=== PATIENT | female | born 1960 | race Caucasian/White ===

== ENCOUNTER 2016-07-18 13:00 | Outpatient (CLI) | payer OTHER ==
[2014-11-12 17:46] VITALS: BP 171/76
== END 2016-07-18 13:01 ==
LOC: CARD 13:00
PROVIDERS: ATTEND Internal Medicine Cardiovascular Disease
DX: R55 Syncope and collapse (principal); Z86.73 Personal history of transient ischemic attack (TIA), and cerebral infarction without residual deficits; F17.210 Nicotine dependence, cigarettes, uncomplicated; I10 Essential (primary) hypertension; E78.5 Hyperlipidemia, unspecified; J44.9 Chronic obstructive pulmonary disease, unspecified
CPT/HCPCS: 99213

== ENCOUNTER 2018-01-09 14:24 | Outpatient (CLI) | payer OTHER ==
[2014-11-12 17:46] VITALS: BP 171/76
--- NOTE | 2018-01-10 13:45 | OP Clinic Progress Note ---
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 This patient has been seen over the last couple of weeks and she is doing a good job keeping her dressings clean, dry, and intact at this time. She denies any fevers, chills, nausea, vomiting, shortness of breath, or chest pain at this time. She denies any other complaints or concerns regarding her feet at this time. OBJECTIVE: VITAL SIGNS: T: 97.6 degree Fahrenheit, heart rate 71, R: 16, BP: Elevated at 197/78. We have been having blood pressure cuff problems and I believe this blood pressure is likely falsely elevated today. VASCULAR: Palpable pulses of left foot. Capillary refill time is less than 3 seconds to the toes of the left foot. No edema of left foot. DERMATOLOGIC: Left 3rd toe plantar proximal interphalangeal joint region with open ulcer which seems to be healing well. The fibrous plug was debrided with a #15 blade to reveal a healing wound. This wound measured 0.6 x 0.6 x 0.4 cm deep today. This was not measured last week, so I do not have a comparison today but I will next week. The wound appears better and healthier. At this point in time, the wound is able to be squeezed shut medial and lateral sides of the wound. The wound was probed and not found to have any probe to bone at this time. This is no purulence, malodor, or erythema noted to the left 3rd toe. There is still mild ecchymosis noted to the hallux of the left foot. There is also noted small eschar over the left knee that the patient showed us today which she states she received when she fell recently. She seemed confused about when it may have happened, however. She said I must have fallen and then later on stated that it happened when she fell here. MUSCULOSKELETAL: Pain on palpation is noted underneath the left 3rd toe at the wound site. There is still mild digital contracture noted at the proximal interphalangeal joint in the plantar flexion direction, as well as at the distal interphalangeal joint in the same direction. This is much more rectus, however, than prior to the tenotomy that was performed a couple of weeks ago. There are other digital contractures as well noted to toes #2 and #4 of the left foot. There is also hallux valgus noted to the left foot. NEUROLOGIC: Light touch sensation is intact to the toes of the left foot. ASSESSMENT: 1. Laceration of lesser toe of left foot. S91.115D 2. Hammertoes of both feet. M20.41, M20.42. 3. Smoker. F17.200. 4. Vascular dementia with behavior disturbance. F01.51. 5. Bunion, unspecified laterality. M20.10. PROCEDURE #1: Sharp debridement of the wound site sub 3rd toe proximal interphalangeal joint with a #15 blade. Bleeding was minimal. The wound was measured and recorded above. The wound was dressed with Betadine soaked 4 x 4 gauze, more 4 x 4 gauze, 4-inch Kerlix, and a 4-inch Tate wrap that we re-used from her last appointment because it was clean. The foot and toe are looking much better. I believe there is a good chance of healing this toe secondarily. We may consider numbing up her toe and closing in a longitudinal direction this ulcer in order to have a closed wound underneath. We will determine this at her next visit. PLAN: Return to the outpatient clinic Sunday, as I will not be here that Sunday. We will debride the wound and consider continuing that treatment versus primary closure with sutures. We may even be able to consider Steri-Strip closure to see if that holds the wound closed enough over the next couple of weeks. We may consider that at her next visit. MATERIALS USED: 4 x 4 gauze package. cc: Dr. Stefano KEITA
== END 2018-01-09 14:25 ==
LOC: POD 14:24
PROVIDERS: ATTEND Podiatrist Foot & Ankle Surgery
DX: S91.115D Laceration without foreign body of left lesser toe(s) without damage to nail, subsequent encounter (principal); M20.41 Other hammer toe(s) (acquired), right foot; M20.42 Other hammer toe(s) (acquired), left foot; M20.10 Hallux valgus (acquired), unspecified foot; F01.51 Vascular dementia, unspecified severity, with behavioral disturbance; F17.200 Nicotine dependence, unspecified, uncomplicated
CPT/HCPCS: 11042

== ENCOUNTER 2018-01-14 13:51 | Outpatient (CLI) | payer OTHER ==
[2014-11-12 17:46] VITALS: BP 171/76
--- NOTE | 2018-01-23 08:32 | OP Clinic Progress Note ---
SUBJECTIVE: Elizabeth Hurd is a 57-year-old female who presents today for follow up of a left 3rd toe ulcer. The patient denies any complaints or concerns or pain. The patient does not admit to any fevers, chills, nausea, vomiting, shortness of breath or chest pain. The patient seemed to be her normal self overall today. OBJECTIVE: VITAL SIGNS: T: 97.8 degrees Fahrenheit, pulse oximetry is 96%, heart rate 80, R: 16, BP: 118/76. Pain is zero out of 10. VASCULAR: Pulses are palpable to the left foot. Capillary refill time is less than 3 seconds to the toes of the left foot. No edema is noted of the left foot. DERMATOLOGIC: Left 3rd toe plantar proximal interphalangeal joint region with an open ulcer which seems to be healing noticeably well compared to her last visit even. This mistakenly was not measured today but the wound seems to be only two-thirds the size as it was last time and seems to be filling in well. This was debrided with a #15 blade today to reveal still a healing wound and good bleeding. It appears that the wound is able to be squeezed almost completely closed, if not completely closed from medial to lateral pressure. There is no purulence, erythema, or malodor noted. There are no other open lesions noted or concerning areas. MUSCULOSKELETAL: Pain on palpation is noted underneath the left 3rd toe wound site. There is still a mild digital contracture noted at the PIPJ in the flexion direction, as well as at the DIPJ in the plantar flexion direction. This is much more straight, however, than prior to previously when the tenotomy was performed as I mentioned previously. There are other digital contractures noted as well to toes #2 and #4 of the left foot, as well as hallux valgus noted to the left foot. NEUROLOGIC: Light touch sensation is intact to the toes of the left foot. ASSESSMENT: 1. Laceration of left 3rd toe of left foot. S91.115D. 2. Hammertoes of both feet. M20.41 and M20.42. 3. Smoker. F17.200. 4. Vascular dementia with behavior disturbance. F01.51. 5. Bunion, unspecified laterality. M20.10. PROCEDURE #1: Left 3rd toe ulceration was debrided with a #15 blade down to and including the subcutaneous tissue layer. Bleeding was controlled with pressure. The sides of the toe had Benzoin Tincture applied for helping Steri-Strips to stick and Steri-Strips were utilized to try and help hold the laceration site together. The patient tolerated the procedure well. PLAN: We will plan on leaving this dressing intact for the next week to 9 days and we will see the patient next week on Sunday in the outpatient clinic to evaluate to see if the wound seems to be closed and healed. If not, we will consider numbing the toe and applying sutures to close the wound primarily versus continuing secondary healing. The patient is okay with the plan going forward at this time. MATERIALS USED: 1. 4-inch Kerlix roll. 2. Steri-Strips, a case. cc: Dr. Stefano KEITA
== END 2018-01-14 13:52 ==
LOC: POD 13:51
PROVIDERS: ATTEND Podiatrist Foot & Ankle Surgery
DX: S91.115D Laceration without foreign body of left lesser toe(s) without damage to nail, subsequent encounter (principal); M20.41 Other hammer toe(s) (acquired), right foot; M20.42 Other hammer toe(s) (acquired), left foot; M20.10 Hallux valgus (acquired), unspecified foot; F01.51 Vascular dementia, unspecified severity, with behavioral disturbance; F17.210 Nicotine dependence, cigarettes, uncomplicated
CPT/HCPCS: 11042

== ENCOUNTER 2018-02-04 13:53 | Outpatient (CLI) | payer OTHER ==
[2014-11-12 17:46] VITALS: BP 171/76
--- NOTE | 2018-02-13 14:16 | OP Clinic Progress Note ---
SUBJECTIVE: Elizabeth Hurd is a 57-year-old female who presented today to the clinic for a follow up of her left 3rd toe open lesion. The patient has left the dressings, clean, dry, and intact since then and there is almost no drainage noted at all and what was there is completely dry. The patient presents in a surgical shoe. The patient states she is doing well and does admit that she just finished having a smoke outside and states that this is why her blood pressure is so high today. She was encouraged today to have it checked at home, as well as written instructions on her green paper were sent with her to have her blood pressure checked there as well to make sure it is not normally so high and if it is, to contact their primary care doctor. The patient does not admit to any fevers, chills, nausea, vomiting, shortness of breath, or chest pain at this time. OBJECTIVE: VITAL SIGNS: BP: 189/97, please see above, heart rate: 75, R: 20, T: 97.5 degrees Fahrenheit, oxygen saturation is 94% on room air. VASCULAR: Palpable pulses of left foot. Capillary refill time was less than 3 seconds to the toes of the left foot. No edema of her left foot. DERMATOLOGIC: Left 3rd toe sulcus previous wound has closed over completely with a stable eschar. This is very stable and free of any pain. There is no erythema or drainage of any kind at this time. There is no malodor or purulence noted. MUSCULOSKELETAL: Digital contractures of left 2nd and 4th toes are noted. There is also left hallux valgus deformity noted. There is no pain on palpation noted today at the previous ulcer site where there is a good looking stable eschar noted. There is a more rectus-appearing left 3rd toe at this time. History of previous flexor tendon tenotomy of left 3rd toe. NEUROLOGIC: Light touch sensation is intact to the toes of the left foot. PSYCHIATRIC/MENTAL STATUS: Grossly normal. ASSESSMENT: 1. Laceration of lesser toe of left foot. F91.115D. 2. Hammertoes of both feet. M20.41 and M20.42. 3. Vascular dementia with behavior disturbance. F01.51. 4. Loss of protective sensation of skin of foot. R20.8. 5. Bunion, unspecified laterality. M20.10. 6. Smoker. F17.200. PLAN: There was no need for any procedure on this today. The patient has closed over this wound with a stable eschar and this will be left intact until final healing is complete. The patient had lotion applied to the left foot and she was instructed to not let any lotion happen on her toes at this time, but may have some on the foot portion. She was placed in a sock and surgical shoe and was encouraged to get back into a regular shoe at this time at home. We will also allow her to begin showering again. She was encouraged to not do any baths or soaking at this time still so that we do not loosen the stable eschar. Return to the Outpatient Clinic in 1 week in the morning for a check up to make sure that she is doing well being back in a regular shoe at this area. At that time, we will likely push her out an additional 3 weeks or 4 weeks. That may be her final visit at that time if she is all the way healed. I do not feel comfortable giving her any other padding at this time for her other hammertoes and we will see how she does in a regular shoe before deciding if we need to do anything else for her. MATERIALS USED: There were no materials used today. cc: Dr. Stefano KEITA
== END 2018-02-04 13:55 ==
LOC: POD 13:53
PROVIDERS: ATTEND Podiatrist Foot & Ankle Surgery
DX: S91.115D Laceration without foreign body of left lesser toe(s) without damage to nail, subsequent encounter (principal); M20.41 Other hammer toe(s) (acquired), right foot; M20.42 Other hammer toe(s) (acquired), left foot; F01.51 Vascular dementia, unspecified severity, with behavioral disturbance; R20.8 Other disturbances of skin sensation; M20.10 Hallux valgus (acquired), unspecified foot; F17.200 Nicotine dependence, unspecified, uncomplicated
CPT/HCPCS: 99212

== ENCOUNTER 2018-03-04 12:59 | Outpatient (CLI) | payer OTHER ==
[2014-11-12 17:46] VITALS: BP 171/76
--- NOTE | 2018-03-05 13:38 | OP Clinic Progress Note ---
SUBJECTIVE: Elizabeth Hurd is a 57-year-old female who presents today for follow up of a previous left 3rd toe ulcer which had healed and she was pushed out a few weeks walking in a normal shoe to see if continues to do well. The patient denies any concerns or real pain or problems at this time. She is worried that she has other toes that are curled under still and would like them fixed, however. She states that she is unwilling and unable to quit smoking in order to allow for elective surgery. The patient does not admit to any fevers, chills, nausea, vomiting, shortness of breath, or chest pain at this time. OBJECTIVE: VITAL SIGNS: T: 97.6 Fahrenheit, heart rate 80, R:18, pulse oximetry was 93% on room air, BP: 157/97. VASCULAR: DP and PT palpable pulses bilaterally. Capillary refill time is less than 3 seconds to the toes bilaterally. There is no edema bilaterally. DERMATOLOGIC: There is no hyperkeratosis noted between or around the toes on the left or right foot. The previous ulcer is still completely healed with no eschar at this point in time and with healed skin that looks great. There is no erythema or concern at this time for other ulcers or pre-ulcerations. MUSCULOSKELETAL: There is still digital contracture about the 2nd, 4th, and 5th toes of the left foot, as well as hallux valgus deformity, which is severe, of the left foot. Due to the hallux valgus deformity, there is an inability to straighten the left 2nd toe without correcting the 1st toe. There is pain on palpation with efforts to straighten the toes at this time but the patient seems to be fine as long as the toes are left how they are clinically. NEUROLOGIC: Light touch sensation is intact to the toes bilaterally. ASSESSMENT: 1. Toe ulcer, healed. 2. Hammertoes bilaterally. 3. Hallux valgus bilaterally. The nurses are to check the toes once a week for any concerns or pre-ulcerative concerns. This will be performed where she lives and with good care and watching it carefully over the next while, we will plan on having the patient back in 2 months for a follow up to make sure she is still doing well between all of her toes, as well as the site that was healed. The patient understands this and agrees. The patient would like surgery to fix the left 2nd toe which is severely in a claw toe position. She understands however that I am unwilling to do elective surgery on her due to her smoking about a half-a-pack a day still. If she develops concerns that warrant having the surgery done anyway, then I may consider it. She was encouraged to stop smoking in order to go forward with elective surgery, however. The patient understands. PLAN: We will see the patient in 2 months for follow up and to make sure she is doing well. cc: Dr. Stefano KEITA
== END 2018-03-04 13:03 ==
LOC: POD 12:59
PROVIDERS: ATTEND Podiatrist Foot & Ankle Surgery
DX: M20.42 Other hammer toe(s) (acquired), left foot (principal); M20.41 Other hammer toe(s) (acquired), right foot; M20.12 Hallux valgus (acquired), left foot; M20.11 Hallux valgus (acquired), right foot; F17.210 Nicotine dependence, cigarettes, uncomplicated
CPT/HCPCS: 99212